=== PATIENT | female | born 1980 | race Caucasian/White ===

== ENCOUNTER 2017-07-27 20:33 | Emergency (ER) | payer OTHER ==
[~2017-07-27] VITALS: Ht 165.1 cm; Wt 137.9 kg
[~2017-07-27 20:33] MED LIST: ACET500 PO; ALBU90I INH; ALBU90OI; ALBU90OI INH; AMOCLA875 PO; AMOX500 PO; ANTOXYBENA RIGHTEAR; AZIT250 PO; Adipex-P37.5 M1 PO; Adipex-P37.5 MG PO; BENZ100A PO; BLOOD PRESSURE MED; BUPR150ER PO; BUPR75; CETI10 PO; CIPDEXSU RIGHTEAR; CITA20 PO; CRUTCH4 XX; CYCL10 PO; DIPATR PO; DOXY100 PO; FERR325 PO; FLUT.05NI; HYDACE5 PO; HYDACE5325; HYDGUAL120 PO; HYDR1TAB94 PO; IBUP400 PO; IBUP600 PO; IBUP800 PO; LABE100 PO; LANS30EC PO; LORA.5 PO; METO10 PO; MONT10T; MONT10T PO; MULVITMINE PO; NAPR550 PO; NEOPOLHCSU OT; Naprosyn500 MG PO; Norco 5-325 Ta1 EACH PO; OMEP20ER PO; OTC ALLERGY MEDS; OXYACE5T PO; PRED10 PO; PROACE100 PO; PROCODE120 PO; PROM25 PO; PROM25S PR; Phenergan25 M1 PO; Prednisone10 MG PO; RXCYCL10 PO; RXDIPATR PO; RXHYD5325 PO; RXNAPNA550 PO; RXNEOPOLHC AD; RXOXYACE PO; SERT25 PO; SERT50 PO; SULTRIDS PO; TRIA80TC TOP; Ultram50 MG PO; Zofran Odt8 MG SL
[2017-07-27 21:30] LABS: BASOPHILS ABSOLUTE AUTO 0.03 K/mm3 (0.00-0.23); BASOPHILS PERCENT AUTO 1 % (0-2); EOSINOPHILS ABSOLUTE AUTO 0.11 K/mm3 (0.00-0.68); EOSINOPHILS PERCENT AUTO 2 % (0-6); Hematocrit 36.6 % (33.0-51.0); Hemoglobin 11.4 g/dL (11.5-16.0); IMMATURE GRAN ABSOLUTE AUTO 0.04 K/mm3 (0.00-0.10); IMMATURE GRAN PERCENT AUTO 1 % (0-1); LYMPHOCYTES ABSOLUTE AUTO 1.77 K/mm3 (0.84-5.20); LYMPHOCYTES PERCENT AUTO 32 % (21-46); MONOCYTES ABSOLUTE AUTO 0.69 K/mm3 (0.16-1.47); MONOCYTES PERCENT AUTO 12 % (4-13); Mean Corpuscular HGB 25.2 pg (26.0-34.0); Mean Corpuscular HGB Conc 31.1 g/dL (31.5-36.5); Mean Corpuscular Volume 81 fL (80-100); NEUTROPHILS ABSOLUTE AUTO 2.94 K/mm3 (1.96-9.15); NEUTROPHILS PERCENT AUTO 53 % (41-73); RDW Coefficient Variation 15.1 % (11.7-14.2); RDW Standard Deviation 44.1 fL (35.1-46.3); Red Blood Cell Count 4.52 M/mm3 (3.80-5.20); White Blood Cell Count 5.58 K/mm3 (4.00-11.30)
[2017-07-27 21:40] LABS: Mean Platelet Volume 10.8 fL (9.1-12.4); Platelet Count 176 K/mm3 (150-400)
[2017-07-27 21:48] LABS: Alanine Aminotransfer (ALT/SGP 20 U/L (12-78); Albumin, Blood 3.3 g/dL (3.4-5.0); Albumin/Globulin Ratio 0.8 (0.8-1.8); Alk Phos 95 U/L (50-136); Anion Gap 8 mmol/L (6-16); Aspartate Aminotrans (AST/SGOT 19 U/L (12-37); Bilirubin, Total 0.3 mg/dL (0.1-1.0); Blood Urea Nitrogen 11 mg/dL (8-24); Bun/Creatinine Ratio 15.5 (12.0-20.0); CO2, Blood 22 mmol/L (21-32); Calcium, Blood 8.5 mg/dL (8.5-10.1); Chloride, Blood 108 mmol/L (98-108); Creatinine, Blood 0.71 mg/dL (0.40-1.00); Globulin, Blood 4.3 g/dL (2.2-4.0); Glomerular Filtration Rate >60 (60-); Glucose, Blood 112 mg/dL (70-99); Potassium, Blood 3.4 mmol/L (3.5-5.5); Sodium, Blood 138 mmol/L (136-145); Total Protein, Blood 7.6 g/dL (6.4-8.2)
[2017-07-27] MEDS ORDERED: Flovent 110 MCG12 GM INH (22:10)
[2017-07-27] MEDS ORDERED: BUPR75 PO (22:10)
[2017-07-27] MEDS ORDERED: TRAZ100 PO (22:11)
[2017-07-27] MEDS ORDERED: Prednisone20 MG PO (22:56)
[2017-07-27] MEDS ORDERED: ALBU90OI INH (22:56)
[2017-07-27] MEDS ORDERED: BENZ100A PO (22:56)
[2017-07-27] MEDS ORDERED: Cheratussin AC118 ML PO (22:56)
== END 2017-07-27 23:18 | disposition home or self-care (01) ==
LOC: ER 20:33
PROVIDERS: Emergency Medicine
DX: J45.901 Unspecified asthma with (acute) exacerbation (principal); Z88.5 Allergy status to narcotic agent; Z91.040 Latex allergy status; Z79.899 Other long term (current) drug therapy
CPT/HCPCS: 36415; 71046; 80053; 85025; 94640; 99284

== ENCOUNTER 2018-05-14 06:36 | Emergency (ER) | payer OTHER ==
[~2018-05-14] VITALS: Ht 165.1 cm; Wt 103.9 kg
[~2018-05-14 06:36] MED LIST changes: +BUPR75 PO; +Cheratussin AC118 ML PO; +Flovent 110 MCG12 GM INH; +Prednisone20 MG PO; +TRAZ100 PO
== END 2018-05-14 09:06 | disposition home or self-care (01) ==
LOC: ER 06:36
DX: G43.109 Migraine with aura, not intractable, without status migrainosus (principal); J02.8 Acute pharyngitis due to other specified organisms; F41.9 Anxiety disorder, unspecified; J45.909 Unspecified asthma, uncomplicated
CPT/HCPCS: 96374; 96375; 99283-25; J0780; J1200; J1885

== ENCOUNTER 2018-05-22 17:21 | Emergency (ER) | payer OTHER ==
[~2018-05-22] VITALS: Ht 165.1 cm; Wt 121.1 kg
[2018-05-22] MEDS ORDERED: Indomethacin50 MG PO (18:16)
== END 2018-05-22 18:30 | disposition home or self-care (01) ==
LOC: ER 17:21
DX: S63.502A Unspecified sprain of left wrist, initial encounter (principal); W01.198A Fall on same level from slipping, tripping and stumbling with subsequent striking against other object, initial encounter; Z88.5 Allergy status to narcotic agent; Z91.040 Latex allergy status; Z79.899 Other long term (current) drug therapy; J45.909 Unspecified asthma, uncomplicated
CPT/HCPCS: 29125; 73110; 99283-25; L3917

== ENCOUNTER 2018-10-31 06:08 | Day surgery (SDC) | payer OTHER ==
[~2018-10-31] VITALS: Ht 165 cm; Wt 131.4 kg
[~2018-10-31 06:08] MED LIST changes: +Indomethacin50 MG PO
[2018-10-31] MEDS ORDERED: INDO50S PR (06:35)
[2018-10-31] MEDS ORDERED: Indomethacin50 MG PO (06:45)
--- NOTE | 2018-10-31 06:51 | NUR ---
Ambulatory in Day Surgery History, Chart, Medications and Allergies reviewed before start of procedure.Patient confirms NPO status and agrees with scheduled surgery. Lungs clear T/O to Auscultation. Patient reports completing Chlorhexadine shower X2 prior to admission to hospital.Surgical site prepped with 2% Chlorhexidine cloth wipe.
--- NOTE | 2018-10-31 07:32 | NUR ---
DISCUSSED WITH DR. GUO TYPE AND SCREEN DRAW, NOT COMPLETE. REPORTS OKAY TO GO BACK TO OR WITHOUT RESULTS
[2018-10-31 16:36] LABS: BASOPHILS ABSOLUTE AUTO 0.04 K/mm3 (0.00-0.23); BASOPHILS PERCENT AUTO 0 % (0-2); EOSINOPHILS ABSOLUTE AUTO 0.04 K/mm3 (0.00-0.68); EOSINOPHILS PERCENT AUTO 0 % (0-6); Hemoglobin 9.4 g/dL (11.5-16.0); IMMATURE GRAN ABSOLUTE AUTO 0.07 K/mm3 (0.00-0.10); IMMATURE GRAN PERCENT AUTO 1 % (0-1); LYMPHOCYTES ABSOLUTE AUTO 1.97 K/mm3 (0.84-5.20); LYMPHOCYTES PERCENT AUTO 16 % (21-46); MONOCYTES ABSOLUTE AUTO 0.98 K/mm3 (0.16-1.47); MONOCYTES PERCENT AUTO 8 % (4-13); Mean Corpuscular HGB 26.9 pg (26.0-34.0); Mean Corpuscular HGB Conc 31.3 g/dL (31.5-36.5); Mean Corpuscular Volume 86 fL (80-100); Mean Platelet Volume 10.5 fL (9.1-12.4); NEUTROPHILS PERCENT AUTO 74 % (41-73); Platelet Count 298 K/mm3 (150-400); RDW Coefficient Variation 13.8 % (11.7-14.2); RDW Standard Deviation 42.8 fL (35.1-46.3); Red Blood Cell Count 3.49 M/mm3 (3.80-5.20)
--- NOTE | 2018-10-31 18:00 | NUR ---
SHIFT SUMMARY PT HAS DONE WELL POST OP ALTHOUGH STRUGGLING WITH PAIN MANAGEMENT. SMALL AMOUNT VAG BLEEDING. OUT OF BED BY 6PM. FAMILY LOVING AND SUPPORTIVE.
[2018-11-01 04:38] LABS: BASOPHILS ABSOLUTE AUTO 0.04 K/mm3 (0.00-0.23); BASOPHILS PERCENT AUTO 1 % (0-2); EOSINOPHILS PERCENT AUTO 3 % (0-6); Hematocrit 28.6 % (33.0-51.0); Hemoglobin 8.8 g/dL (11.5-16.0); IMMATURE GRAN ABSOLUTE AUTO 0.03 K/mm3 (0.00-0.10); IMMATURE GRAN PERCENT AUTO 0 % (0-1); LYMPHOCYTES ABSOLUTE AUTO 2.27 K/mm3 (0.84-5.20); LYMPHOCYTES PERCENT AUTO 31 % (21-46); MONOCYTES ABSOLUTE AUTO 0.44 K/mm3 (0.16-1.47); MONOCYTES PERCENT AUTO 6 % (4-13); Mean Corpuscular HGB 27.2 pg (26.0-34.0); Mean Corpuscular HGB Conc 30.8 g/dL (31.5-36.5); Mean Corpuscular Volume 88 fL (80-100); Mean Platelet Volume 10.5 fL (9.1-12.4); NEUTROPHILS ABSOLUTE AUTO 4.47 K/mm3 (1.96-9.15); NEUTROPHILS PERCENT AUTO 60 % (41-73); Platelet Count 279 K/mm3 (150-400); RDW Coefficient Variation 13.8 % (11.7-14.2); RDW Standard Deviation 44.5 fL (35.1-46.3); Red Blood Cell Count 3.24 M/mm3 (3.80-5.20); White Blood Cell Count 7.45 K/mm3 (4.00-11.30)
--- NOTE | 2018-11-01 06:04 | NUR ---
POD 1 S/P LAVH. PT VSS T/O NIGHT. DRESSINGS CDI, NO SIG VAGINAL BLEEDING NOTED. PT STRUGGLED W/PAIN CONTROL, PAIN MGD W/PO AND IV PAIN MEDS PER ORDERS. PT C/O MILD NAUSEA, NO EMESIS, DENISE CRACKERS AND JELLO. IVF CONT PER ORDERS. PLAN TO D/C WHEELER CATH THIS AM. PT USING CALL LIGHT FOR ASSISTANCE, WILL CONT TO MONITOR UNTIL REP GIVEN TO ONCOMING RN.
[2018-11-01] MEDS ORDERED: DOCU100 PO (09:34)
[2018-11-01] MEDS ORDERED: IBUP800 PO (09:35)
[2018-11-01] MEDS ORDERED: Percocet 7.5-31 EACH PO (09:36)
--- NOTE | 2018-11-01 14:36 | NUR ---
PT UPDATE PT CONTINUES TO REPORT UNRELIEVED PAIN, NOT PASSING GAS, AND NAUSEA. SITTING UP IN CHAIR PLAYING CARDS WITH FAMILY. HAS BEEN AMBULATED TWICE, UP TO BATHROOM AND CHAIR FEW TIMES.
--- NOTE | 2018-11-01 17:20 | NUR ---
SHIFT SUMMARY PT STRUGGLED WITH PAIN MANAGEMENT. WAS ABLE TO VOID SUCCESSFULLY. TOELRATING SMALL BITES OF DIET BUT C/O MILD NAUSEA DESPITE ANTIEMETICS. AMBULATING AND SITTING UP IN CHAIR TODAY. PT DOESN'T FEEL CONFORTABLE WITH DISCHARGE DUE TO PAIN AND NAUSEA. MD NOTIFIED AND OK WITH HOLDING D/C UNTIL TOMORROW
--- NOTE | 2018-11-02 06:31 | NUR ---
POD 2 S/P LAVH. PT VSS T/O NIGHT. DRESSINGS CDI. NO VAGINAL BLEEDING NOTED. PAIN MGD W/2 PERCOCET AND TORIDOL W/REP RELIEF. PT DENISE REG PO, REP +FLATUS THIS AM. PT AMB INDEP IN HALLS, DENISE WELL. PLAN TO D/C HOME TODAY. WILL CONT TO MONITOR UNTIL REP GIVEN TO ONCOMING RN.
[2018-11-02] MEDS ORDERED: ONDA4ODT SL (08:37)
== END 2018-11-02 09:40 | disposition home or self-care (01) ==
LOC: ORSCMMR 06:08 → ORD 07:30 → SURS 10:34 → ORSCMMR 11-02 09:40
PROVIDERS: Obstetrics & Gynecology
PROC: 0UT0FZZ Resection of Right Ovary, Via Natural or Artificial Opening With Percutaneous Endoscopic Assistance (ICD-10-PCS; principal; 2018-10-31 07:30)
PROC: 0UT9FZZ Resection of Uterus, Via Natural or Artificial Opening With Percutaneous Endoscopic Assistance (ICD-10-PCS; principal; 2018-10-31 07:30)
PROC: 0UT5FZZ Resection of Right Fallopian Tube, Via Natural or Artificial Opening With Percutaneous Endoscopic Assistance (ICD-10-PCS; principal; 2018-10-31 07:30)
DX: N92.1 Excessive and frequent menstruation with irregular cycle (principal); D50.9 Iron deficiency anemia, unspecified; N80.0 Endometriosis of uterus; R10.2 Pelvic and perineal pain; N73.6 Female pelvic peritoneal adhesions (postinfective); I10 Essential (primary) hypertension; F41.8 Other specified anxiety disorders; E66.01 Morbid (severe) obesity due to excess calories; Z68.42 Body mass index [BMI] 45.0-49.9, adult; J45.998 Other asthma; Z79.899 Other long term (current) drug therapy
CPT/HCPCS: 36415; 85025; 86850; 86900; 86901; 88307; 94762; A9270; A9270-GY; C1729; J0690; J1100; J1170; J1885; J2250; J2405; J2704; J2765; J3010; J7120; Q0163

== ENCOUNTER → 2018-12-06 | Outpatient (CLI) | payer OTHER ==
[~2018-12-06] MED LIST changes: +Bupropion HCl150 M2 PO; +DICL75ER PO; +DOCU100 PO; +INDO50S PR; +ONDA4ODT SL; +Percocet 7.5-31 EACH PO; +Sleep Aid25 M1 PO
== END | disposition home or self-care (01) ==
LOC: LAB EV 13:38 → LAB SHORT 13:38
DX: N10 Acute pyelonephritis (principal)
CPT/HCPCS: 87086

== ENCOUNTER 2019-02-03 16:57 | Emergency (ER) | payer OTHER ==
[~2019-02-03] VITALS: Ht 170.2 cm; Wt 113.4 kg
[~2019-02-03 16:57] MED LIST changes: -Bupropion HCl150 M2 PO; -DICL75ER PO; -Sleep Aid25 M1 PO
== END 2019-02-03 20:34 | disposition home or self-care (01) ==
LOC: ER 16:57
DX: Z20.818 Contact with and (suspected) exposure to other bacterial communicable diseases (principal); J45.909 Unspecified asthma, uncomplicated; Z79.899 Other long term (current) drug therapy
CPT/HCPCS: 36415; 86720; 99283

== ENCOUNTER 2019-03-01 17:09 | Emergency (ER) | payer OTHER ==
[~2019-03-01] VITALS: Ht 165.1 cm; Wt 127.0 kg
[2019-03-01] MEDS ORDERED: Adipex-P37.5 M1 PO (17:35)
[2019-03-01] MEDS ORDERED: Sleep Aid25 M1 PO (17:36)
[2019-03-01] MEDS ORDERED: Bupropion HCl150 M2 PO (17:37)
[2019-03-01] MEDS ORDERED: DICL75ER PO (18:11)
== END 2019-03-01 18:30 | disposition home or self-care (01) ==
LOC: ER 17:09
DX: S43.401A Unspecified sprain of right shoulder joint, initial encounter (principal); W18.30XA Fall on same level, unspecified, initial encounter; Z91.041 Radiographic dye allergy status; Z79.899 Other long term (current) drug therapy; J45.909 Unspecified asthma, uncomplicated; I10 Essential (primary) hypertension; F32.9 Major depressive disorder, single episode, unspecified
CPT/HCPCS: 73030; 99283-25

== ENCOUNTER 2019-04-14 08:02 | Emergency (ER) | payer OTHER ==
[~2019-04-14] VITALS: Ht 167.6 cm; Wt 113.4 kg
[~2019-04-14 08:02] MED LIST changes: +Bupropion HCl150 M2 PO; +DICL75ER PO; +Sleep Aid25 M1 PO
[2019-04-14] MEDS ORDERED: Amoxicillin500 MG PO (09:10)
[2019-04-14] MEDS ORDERED: IBUP800 PO (09:10)
== END 2019-04-14 10:05 | disposition home or self-care (01) ==
LOC: ER 08:02
DX: S93.401A Sprain of unspecified ligament of right ankle, initial encounter (principal); J02.9 Acute pharyngitis, unspecified; J45.909 Unspecified asthma, uncomplicated; Z91.040 Latex allergy status; Z79.899 Other long term (current) drug therapy; Z79.51 Long term (current) use of inhaled steroids; X50.1XXA Overexertion from prolonged static or awkward postures, initial encounter
CPT/HCPCS: 29515; 73610; 99283-25

== ENCOUNTER 2022-05-01 04:46 | Inpatient (IN) | payer OTHER ==
[~2022-05-01] VITALS: Ht 162.6 cm; Wt 135.2 kg
[~2022-05-01 04:46] MED LIST changes: +Amoxicillin500 MG PO
[2022-05-01 07:24] LABS: BASOPHILS ABSOLUTE AUTO 0.08 K/mm3 (0.00-0.23); BASOPHILS PERCENT AUTO 1 % (0-2); EOSINOPHILS ABSOLUTE AUTO 0.12 K/mm3 (0.00-0.68); EOSINOPHILS PERCENT AUTO 1 % (0-6); IMMATURE GRAN ABSOLUTE AUTO 0.08 K/mm3 (0.00-0.10); IMMATURE GRAN PERCENT AUTO 1 % (0-1); LYMPHOCYTES ABSOLUTE AUTO 1.65 K/mm3 (0.84-5.20); LYMPHOCYTES PERCENT AUTO 13 % (21-46); MONOCYTES ABSOLUTE AUTO 0.71 K/mm3 (0.16-1.47); MONOCYTES PERCENT AUTO 5 % (4-13); Mean Corpuscular HGB 28.5 pg (26.0-34.0); Mean Corpuscular HGB Conc 33.3 g/dL (31.5-36.5); Mean Corpuscular Volume 86 fL (80-100); Mean Platelet Volume 9.9 fL (9.1-12.4); NEUTROPHILS ABSOLUTE AUTO 10.44 K/mm3 (1.96-9.15); NEUTROPHILS PERCENT AUTO 80 % (41-73); Platelet Count 330 K/mm3 (150-400); RDW Coefficient Variation 13.8 % (11.7-14.2); RDW Standard Deviation 43.1 fL (35.1-46.3); Red Blood Cell Count 4.91 M/mm3 (3.80-5.20); White Blood Cell Count 13.08 K/mm3 (4.00-11.30)
[2022-05-01 07:48] LABS: Albumin, Blood 3.9 g/dL (3.4-5.0); Bilirubin, Total 0.6 mg/dL (0.1-1.0); Bun/Creatinine Ratio 14.6 (12.0-20.0); Calcium, Blood 8.9 mg/dL (8.5-10.1); Creatinine, Blood 0.55 mg/dL (0.40-1.00); Globulin, Blood 3.9 g/dL (2.2-4.0); Total Protein, Blood 7.8 g/dL (6.4-8.2)
[2022-05-01] MEDS ORDERED: TOPI100 PO (11:00)
[2022-05-01] MEDS ORDERED: DOTTI1 EAC6 TD (11:09)
[2022-05-01] MEDS ORDERED: LABE100 PO (13:51)
--- NOTE | 2022-05-01 18:32 | NUR ---
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 RIGHT FACE AND RIGHT EYE SWOLLEN HOT TO TOUCH, ICE PACK TO AREA. NO DISTRESS, LS CLEAR DIM BASES, SATS 96% ON RA, ACTIVE BT, HALLES CP SOB N/V, WILL RELAY TO PM RN
[2022-05-02 04:50] LABS: BASOPHILS ABSOLUTE AUTO 0.05 K/mm3 (0.00-0.23); BASOPHILS PERCENT AUTO 0 % (0-2); EOSINOPHILS ABSOLUTE AUTO 0.02 K/mm3 (0.00-0.68); EOSINOPHILS PERCENT AUTO 0 % (0-6); Hematocrit 35.7 % (33.0-51.0); Hemoglobin 11.9 g/dL (11.5-16.0); IMMATURE GRAN ABSOLUTE AUTO 0.09 K/mm3 (0.00-0.10); IMMATURE GRAN PERCENT AUTO 1 % (0-1); LYMPHOCYTES ABSOLUTE AUTO 2.48 K/mm3 (0.84-5.20); LYMPHOCYTES PERCENT AUTO 20 % (21-46); MONOCYTES ABSOLUTE AUTO 0.81 K/mm3 (0.16-1.47); MONOCYTES PERCENT AUTO 7 % (4-13); Mean Corpuscular HGB 28.6 pg (26.0-34.0); Mean Corpuscular HGB Conc 33.3 g/dL (31.5-36.5); Mean Corpuscular Volume 86 fL (80-100); Mean Platelet Volume 10.1 fL (9.1-12.4); NEUTROPHILS ABSOLUTE AUTO 9.02 K/mm3 (1.96-9.15); NEUTROPHILS PERCENT AUTO 72 % (41-73); Platelet Count 287 K/mm3 (150-400); RDW Standard Deviation 43.5 fL (35.1-46.3); Red Blood Cell Count 4.16 M/mm3 (3.80-5.20); White Blood Cell Count 12.47 K/mm3 (4.00-11.30)
--- NOTE | 2022-05-02 08:05 | NUR ---
TOSHA IS AN ALERT AND ORIENTED YOUNG LADY WITH WHAT APPEARS TO BE AN INFECTED MOLAR ON THE RIGHT SIDE OF HER FACE. PHYSICAL ASSESSMENT IS BENIGN EXCEPT FOR THE ANTERIOR PORTION OF HER R I GHT CHEEK AND JAW WHICH ARE VERY SWOLLEN. SHE IS INDEPENDENT IN HER ROOM, AND RE CE IVED HER TWO DOSES OF UNASYN OVERNIGHT. TOSHA GETS VERY TEARFUL EACH TIME SHE MENTIONS HER SON, BUT UNDERSTANDS THE IMPORTANCE OF STAYING HERE IF IT IS NECESSARY FOR HER HEALTH
--- NOTE | 2022-05-02 19:26 | NUR ---
ALERT AND ORIENTE, INDEPENDENT IN ROOM, SL, NO ACUTE CHANGES, MEDICATED WITH ULTRAM, TYLENOL AND ICE FOR RIGHT FACIAL SWELLING, REPORTED TO YARA JONES
--- NOTE | 2022-05-03 05:51 | NUR ---
SHIFT SUMMARY 41 YR F ADMITTED ON 05/01/22 FOR FACIAL CELLULITIS. FULL CODE. NO ACUTE CHANGES THIS SHIFT. SWELLING ON THE RIGHT SIDE OF PT'S FACE IS GOING DOWN. SHE STATES THAT SHE IS FEELING BETTER BUT IT STILL HURTS. SHE IS INDEPENDANT IN THE ROOM AND CALLS APPROPRIATELY FOR ASSISTANCE WHEN NEEDED. SHE IS VERY PLEASANT AND COOPERATIVE WITH CARE.
[2022-05-03] MEDS ORDERED: AMOCLA875 PO (09:55)
[2022-05-03] MEDS ORDERED: VISBIOME 112.51 EACH PO (09:55)
[2022-05-03] MEDS ORDERED: Acetaminophen650 M1 PO (09:57)
--- NOTE | 2022-05-03 17:11 | NUR ---
patient discharged home, driving, patient and stated medication and discharge needs, alert and oriented x4, facial swelling 85% improved, po antibiotic and probiotics prescribed
== END 2022-05-03 17:32 | disposition home or self-care (01) | DRG 603 ==
LOC: ER 04:46 → ERHOLD 09:41 → MEDS 14:16
PROVIDERS: Nurse Practitioner Acute Care; Student in an Organized Health Care Education/Training Program; ADMIT Student in an Organized Health Care Education/Training Program
DX: L03.211 Cellulitis of face (principal); Z68.43 Body mass index [BMI] 50.0-59.9, adult; K02.9 Dental caries, unspecified; J45.909 Unspecified asthma, uncomplicated; F32.A Depression, unspecified; F41.9 Anxiety disorder, unspecified; H05.229 Edema of unspecified orbit; E66.01 Morbid (severe) obesity due to excess calories; I10 Essential (primary) hypertension; L98.499 Non-pressure chronic ulcer of skin of other sites with unspecified severity; F12.10 Cannabis abuse, uncomplicated; Z91.040 Latex allergy status; Z91.013 Allergy to seafood; Z79.899 Other long term (current) drug therapy; Z79.52 Long term (current) use of systemic steroids; Z79.51 Long term (current) use of inhaled steroids; Z79.2 Long term (current) use of antibiotics; Z98.890 Other specified postprocedural states; Z98.51 Tubal ligation status; Z90.710 Acquired absence of both cervix and uterus
CPT/HCPCS: 36415; 70487; 80053; 83605; 85025; 85651; 86141; 87040; 96365-59; 96375-59; 96376-59; 99285-25; A9270; J0295; J1100; J1650; J1885; J7030; J7050; Q9967